=== PATIENT | male | born 1965 | race Caucasian/White ===

== ENCOUNTER 2018-03-21 15:31 | Emergency (ER) | payer OTHER, SELFPAY ==
[2018-03-21 15:32] VITALS: BP 152/93; PULSE 75; RESP 16; TEMP 36.8; O2SAT 98; BMI 29.0
[2018-03-21 15:51] VITALS: BP 152/93; PULSE 65; RESP 18; TEMP 36.8; O2SAT 98
--- NOTE | 2018-03-21 16:17 | ED.VIS.GEN ---
History of Present Illness Chief Complaint: Abd Pain Informant: Patient Onset: Days - 2 Context: Gradual Onset Timing: Continuous Quality: ache Location: RLQ Current Severity: Moderate Maximum Severity: Moderate Associated Symptoms: Diarrhea, small amounts of bright red blood per rectum Narrative: Seen by Dr. Moreno for this today as an outpatient, had blood work and a CT that showed a leukocytosis of 14.1 and sigmoid diverticulitis with possible surgical complications; as noted on the report, there is surrounding phlegmon without a drainable fluid collection, in addition to a 1.2 X 0.9 cm focus of fluid and gas probably within the colonic wall that represents an intramural abscess versus inflamed diverticulum that is not amenable to percutaneous drainage. PCP called and sent the patient in for further evaluation. CT was performed in the local [facility] outpatient imaging facility. - Past Medical History (1) Hyperlipidemia Status: Chronic (2) HTN (hypertension) Status: Chronic (3) Diverticulosis Status: Chronic Past Medical History - Allergies and Home Meds Allergies/Adverse Reactions: Allergies No Known Allergies Allergy (Verified 03/21/18 15:31) Primary Care Physician: Eugene Go MD [STAFF PHYSICIAN] - Smoking Status: Never smoker Review of Systems General: Denies: Chills, Fever, Sweats Eyes: Denies: Visual changes - bilaterally, Diplopia ENT: Denies: Rhinorrhea, Sore throat Cardiovascular: Denies: Chest pain, Palpitations Respiratory: Denies: Dyspnea, Cough, Dyspnea on exertion Gastrointestinal: Reports: Abdominal pain, Diarrhea, Hematochezia. Denies: Nausea, Vomiting, Melena Genitourinary: Denies: Dysuria, Hematuria, Frequency Musculoskeletal: Denies: Swelling, Extremity Pain Skin: Denies: Rash, Abscess Neurological: Denies: Headache, Weakness, Numbness Allergy: Denies: Swelling of the mouth, Swelling of the tongue Physical Exam Vital Signs/Narrative: Vital Signs Temp Pulse Resp BP Pulse Ox 03/21/18 15:51 98.2 F 65 18 152/93 H 98 03/21/18 15:32 98.2 F 75 16 152/93 H 98 Inital Vital Signs reviewed: Yes General: Well nourished, Well developed, - - well-appearing, nad Head: Normocephalic, Atraumatic Eyes: Perrl, EOMI ENT: Moist mucous membranes, No rhinorrhea Neck: Supple, Nontender Cardiovascular: Regular rate, Regular rhythm, No murmurs, Normal S1, Normal S2 Respiratory: No distress, CTA bilaterally, Chest nontender Abdomen: Soft, Nondistended, Normal bowel sounds, Tender - RLQ > LLQ and LUQ. Negative for: Guarding, Rebound tenderness Back: Nontender, Normal Inspection. Negative for: CVA tenderness Extremities: Nontender, No edema Skin: Normal color, No rash Neurological: Alert, Oriented x3, Cranial nerves II-XII grossly intact, Normal Strength, Normal Sensation Psychological: Normal affect Diagnostic/Tx/Re-eval - Medical Decision Making Discussed CT results with patient and the recommendation for a surgical referral. Patient prefers to stay within the [facility]. Dr. Jasso is on-call for [facility], discussed with him. He looked at the scans and we discussed further. The patient is very stable and has a fairly benign exam, nonsurgical abdomen. He states based on all of this, he recommends outpatient treatment and outpatient follow-up, returning to ER if symptoms worsen, in addition to keeping the patient on a clear liquid and low residue diet for the next 3 days or so. He will be treated with Cipro and Flagyl as an outpatient, he was given IV doses of both here, as well as a dose of morphine. He is well and stable on reevaluation. Prescribed analgesics and given surgical follow-up if he is not improved. He is comfortable with that plan. ED Disposition - Plan for ED Patient: Disposition: Home or Assisted Living Chief Complaint: Abd Pain Diagnosis: Acute diverticulitis Instructions: ED Diverticulitis Prescriptions: Oxycodone HCl/Acetaminophen [Percocet 5/325] 1 tab PO Q6H PRN PRN 3 Days #12 tab PRN Reason: Pain Ciprofloxacin [Cipro] 500 mg PO BID #20 tab Metronidazole [Flagyl] 500 mg PO BID #20 tab Referrals: Norm Jasso MD [STAFF PHYSICIAN] - 3-5 Days if not improving Eugene Go MD [STAFF PHYSICIAN] -
[2018-03-21] MEDS: Morphine 4 MG/ML Syringe IV (16:33)
[2018-03-21] MEDS: Ciprofloxacin 400 MG/200 ML BAG 200 MG IV (16:33)
[2018-03-21 16:37] VITALS: BP 142/87; PULSE 72; RESP 18; TEMP 37.6; O2SAT 97
[2018-03-21 17:16] VITALS: BP 131/81; PULSE 68; RESP 18; TEMP 37.5; O2SAT 95
[2018-03-21 19:12] VITALS: BP 137/78; PULSE 73; RESP 16; O2SAT 98
--- OUTSIDE RECORDS SUMMARY | 2018-05-26 16:33 | XMS RPT_ITS ---
:1965 Author Organization OHIP Care Team Providers Name Role Phone AMA MORENO Attending Unavailable AMA MORENO Referring Unavailable AMA MORENO Attending Unavailable AMA MORENO Referring Unavailable Suzanne WADDELL (PA-C) Referring Unavailable AMA MORENO Attending Unavailable AMA MORENO Referring Unavailable AMA MORENO Referring Unavailable AMA MORENO Referring Unavailable AMA MORENO Referring Unavailable JUAN SUAZO Attending Unavailable Ama Moreno Primary Care Unavailable PROBLEMS PROBLEMS DATE TYPE CONDITION / CODE ATTENDING STATUS SOURCE 03/21/2018 Unknown K57.92 - JUAN SUAZO Active [facility] Diverticulitis of Community intestine, part Hospital unspecified, without Repository perforation or abscess without bleeding / K57.92(ICD-10) 03/21/2018 Active Hemorrhage of anus NA Active [facility] and rectum / Clinic Main K62.5(ICD-10) [place] Repository 03/21/2018 Active Right lower quadrant NA Active [facility] pain / [facility] R10.31(ICD-10) [place] Repository 01/13/2018 Active Abnormal levels of NA Active [facility] other serum enzymes Clinic Main / R74.8(ICD-10) [place] Repository 12/01/2016 Active Family history of NA Active [facility] malignant neoplasm [facility] of prostate / [place] Z80.42(ICD-10) Repository 03/18/2015 Active Mixed hyperlipidemia NA Active [facility] / E78.2(ICD-10) Clinic Main [place] Repository 04/09/2010 Active Other abnormal NA Active [facility] glucose / [facility] R73.09(ICD-10) [place] Repository 12/04/2017 Active Left lower quadrant NA Active [facility] pain / [facility] Main R10.32(ICD-10) [place] Repository PROCEDURES PROCEDURES No Procedure Records FoundRESULTS RESULTS EMERGENCY DEPARTMENT Observed: 03/21/2018 Status: F Source: [place] SUMMARY 6:07 PM [facility] REPOSITORY [facility] Medical Records Department [address] [place] [address] Emergency Department Summary 03/21/18 1617 MR#: [id number] Acct: [id number] Name: SANDEEP BARNES Rep #: [id number] : 1965 52 From: Juan Suazo MD PCP: Ama Moreno MD Status: REG ER History of Present Illness Chief Complaint: Abd Pain Informant: Patient Onset: Days - 2 Context: Gradual Onset Timing: Continuous Quality: ache Location: RLQ Current Severity: Moderate Maximum Severity: Moderate Associated Symptoms: Diarrhea, small amounts of bright red blood per rectum Narrative: Seen by Dr. Moreno for this today as an outpatient, had blood work and a CT that showed a leukocytosis of 14.1 and sigmoid diverticulitis with possible surgical complications; as noted on the report, there is surrounding phlegmon without a drainable fluid collection, in addition to a 1.2 X 0.9 cm focus of fluid and gas probably within the colonic wall that represents an intramural abscess versus inflamed diverticulum that is not amenable to percutaneous drainage. PCP called and sent the patient in for further evaluation. CT was performed in the local [facility] outpatient imaging facility. - Past Medical History (1) Hyperlipidemia Status: Chronic (2) HTN (hypertension) Status: Chronic (3) Diverticulosis Status: Chronic Past Medical History - Allergies and Home Meds Allergies/Adverse Reactions: Allergies No Known Allergies Allergy (Verified 03/21/18 15:31) Primary Care Physician: Eugene Go MD [STAFF PHYSICIAN] - Smoking Status: Never smoker Review of Systems General: Denies: Chills, Fever, Sweats Eyes: Denies: Visual changes - bilaterally, Diplopia ENT: Denies: Rhinorrhea, Sore throat Cardiovascular: Denies: Chest pain, Palpitations Respiratory: Denies: Dyspnea, Cough, Dyspnea on exertion Gastrointestinal: Reports: Abdominal pain, Diarrhea, Hematochezia. Denies: Nausea, Vomiting, Melena Genitourinary: Denies: Dysuria, Hematuria, Frequency Musculoskeletal: Denies: Swelling, Extremity Pain Skin: Denies: Rash, Abscess Neurological: Denies: Headache, Weakness, Numbness Allergy: Denies: Swelling of the mouth, Swelling of the tongue Physical Exam Vital Signs/Narrative: Vital Signs 03/21/18 15:51 98.2 F 65 18 152/93 H 98 03/21/18 15:32 98.2 F 75 16 152/93 H 98 Inital Vital Signs reviewed: Yes General: Well nourished, Well developed, - - well-appearing, nad Head: Normocephalic, Atraumatic Eyes: Perrl, EOMI ENT: Moist mucous membranes, No rhinorrhea Neck: Supple, Nontender Cardiovascular: Regular rate, Regular rhythm, No murmurs, Normal S1, Normal S2 Respiratory: No distress, CTA bilaterally, Chest nontender Abdomen: Soft, Nondistended, Normal bowel sounds, Tender - RLQ > LLQ and LUQ. Negative for: Guarding, Rebound tenderness Back: Nontender, Normal Inspection. Negative for: CVA tenderness Extremities: Nontender, No edema Skin: Normal color, No rash Neurological: Alert, Oriented x3, Cranial nerves II-XII grossly intact, Normal Strength, Normal Sensation Psychological: Normal affect Diagnostic/Tx/Re-eval - Medical Decision Making Discussed CT results with patient and the recommendation for a surgical referral. Patient prefers to stay within the [facility]. Dr. Jasso is on-call for [facility], discussed with him. He looked at the scans and we discussed further. The patient is very stable and has a fairly benign exam, nonsurgical abdomen. He states based on all of this, he recommends outpatient treatment and outpatient follow-up, returning to ER if symptoms worsen, in addition to keeping the patient on a clear liquid and low residue diet for the next 3 days or so. He will be treated with Cipro and Flagyl as an outpatient, he was given IV doses of both here, as well as a dose of morphine. He is well and stable on reevaluation. Prescribed analgesics and given surgical follow-up if he is not improved. He is comfortable with that plan. ED Disposition - Plan for ED Patient: Disposition: Home or Assisted Living Chief Complaint: Abd Pain Diagnosis: Acute diverticulitis Instructions: ED Diverticulitis Prescriptions: Oxycodone HCl/Acetaminophen [Percocet 5/325] 1 tab PO Q6H PRN PRN 3 Days #12 tab PRN Reason: Pain Ciprofloxacin [Cipro] 500 mg PO BID #20 tab Metronidazole [Flagyl] 500 mg PO BID #20 tab Referrals: Norm Jasso MD [STAFF PHYSICIAN] - 3-5 Days if not improving Eugene Go MD [STAFF PHYSICIAN] - What to do if you have Problems For any increased pain, shortness of breath, bleeding, nausea or vomiting, chest pain, or any unexpected problems, contact your Primary Care Provider. Call [facility] ([phone]) or report to the closest Emergency Room. Call 911 if necessary. 03/21/[id number] <Electronically signed by Juan Suazo MD> Date Juan Suazo MD Cosigner Signature (If Indicated): Date CC: Eugene Go MD; Norm Jasso MD; Ama Moreno MD PROGRESS Observed: 03/21/2018 Status: COMPLETED Source: [place] 3:15 PM [facility] REPOSITORY HNO ID: [id number] Author: Ama Moreno Service: (none) Author Type: Physician Type: Progress Notes Filed: 03/21/2018 3:16 PM Note Text: White count is up. His ct scan shows diverticulitis with ? Phlegmon. ? Submucosal abscess. Will call [facility] ER with report. PROGRESS Observed: 03/21/2018 Status: COMPLETED Source: [place] 2:42 PM [facility] REPOSITORY HNO ID: [id number] Author: Sugey Harvey Service: (none) Author Type: (none) Type: Progress Notes Filed: 03/21/2018 2:43 PM Note Text: Radiology Service Progress Note PATIENT NAME: Sandeep Barnes DATE OF SERVICE: March 21, 2018 TIME: 2:42 PM PATIENT IDENTITY VERIFICATION COMPLETED USING TWO (2) METHODS: Patient confirmed name verbally and Date of . PATIENT GENDER DATA: Male PATIENT RELEVANT IMPLANT DATA REVIEWED: Yes CONTRAST INDUCED NEPHROPATHY RISK FACTORS: Not applicable CREATININE: Creatinine Date Value Ref Range Status 03/21/2018 0.99 0.73 - 1.22 mg/dL Final 12/04/2017 0.87 0.73 - 1.22 mg/dL Final 11/22/2016 1.03 0.73 - 1.22 mg/dL Final eGFR-All Other Races Date Value Ref Range Status 03/21/2018 >60 . Final Comment: eGFR (Estimated GFR) Units of measure: mL/min/1.73 meters squared eGFR is derived from the reexpressed MDRD Study equation using the following parameters: serum creatinine, age, gender and race. The creatinine assay has been calibrated to be traceable to IDMS. An eGFR <60 mL/min/1.73m2 for >3 months is consistent with chronic kidney disease. Refer to KDOQI guidelines for clinical interpretation. In patients with unstable renal function, e.g. those with acute kidney injury, the eGFR may not accurately reflect actual GFR. eGFR- Date Value Ref Range Status 03/21/2018 >60 Final P.O.C.T. RESULTS: POC done: Yes, See Lab Tab March 21, 2018 RADIOLOGIST NOTIFIED?: No ALLERGIES: Reviewed and unchanged CONTRAST ALLERGY: NO. PERIPHERAL IV ACCESS: Ambulatory: IV type: A peripheral IV was started in the Left antecubital site with a Angio cath/Butterfly: 22 gauge., Site assessment: Clean,Dry and Intact, Site disposition Discontinued RADIOLOGY DEPARTMENT: CT; Exam(s) Completed: Abdomen/Pelvis SIGNED BY: Sugey Harvey March 21, 2018 2:[address] ABD/PEL W IVCON Observed: 03/21/2018 Status: F Source: [place] 2:42 PM [facility] REPOSITORY * * *Final Report* * * DATE OF EXAM: Mar 21 2018 2:42PM [facility] 0530 - CT ABD/PEL W IVCON / PROCEDURE REASON: multiple diagnoses * * * * Physician Interpretation * * * * EXAMINATION: CT ABDOMEN AND PELVIS WITH IV CONTRAST CLINICAL HISTORY: Right lower quadrant abdominal pain TECHNIQUE: CT of the abdomen and pelvis was performed using standard technique, scanning from just above the dome of the diaphragm to the symphysis pubis. MQ: CTAP_3 Contrast: IV: 150 ml of Omnipaque 300 Oral: 900 ml of 50ML Omnipaque [address] Radiation dose: Integrated Dose-length product (DLP) for this visit = 579 mGy*cm. CT Dose Reduction Employed: mAs-kVp adjusted based on patient size-age COMPARISON: None. RESULT: Liver: No mass. Biliary: No bile duct dilation. Gallbladder is unremarkable. Spleen: No mass. No splenomegaly. Pancreas: No mass or duct dilation. Adrenals: No mass. Kidneys: No mass, calculus or hydronephrosis. GI tract: Diverticulosis. Within the distal sigmoid colon, there is marked wall thickening is surrounding pericolonic inflammatory change. There is no pneumoperitoneum. There is a 1.2 x 0.9 cm fluid and gas focus which may be within the colonic wall or may reflect a diverticulum (series 3 image 111). The appendix is normal. No bowel wall thickening or dilation. Lymph nodes: No abdominal or pelvic lymphadenopathy. Mesentery/Peritoneum: No ascites or mass. Retroperitoneum: No mass. Vasculature: The celiac axis and SMA are patent. The portal vein and branches, splenic vein, SMV, and hepatic veins are patent. No abdominal aortic or iliac artery aneurysm. Pelvis: No mass, ascites or fluid collection. The bladder is unremarkable. Bones/Soft Tissues: No significant finding. Lower thorax: Unremarkable. IMPRESSION: Acute sigmoid diverticulitis with surrounding phlegmon. No drainable fluid collection at this time. 1.2 x 0.9 cm focus of fluid and gas, probably within the colonic wall likely reflects an intramural abscess versus inflamed diverticulum, not amenable to percutaneous drainage. Biomass Technician: [facility] Transcribe Date/Time: Mar 21 2018 2:44P Dictated by : TAI GALVEZ MD This examination was interpreted and the report reviewed and electronically signed by: TAI GALVEZ MD on Mar 21 2018 2:50PM EST [id number] BASIC METABOLIC PANL Collected: 03/21/2018 Status: F Source: [place] 9:08 AM [facility] REPOSITORY TYPE CODE TESTS RESULT OUT OF REFERENCE UNITS RANGE LAB GLU 74-99 mg/dL Glucose High 129 LAB BUN 9-24 mg/dL BUN 13 LAB CRET 0.73-1.22 mg/dL Creatinine 0.99 LAB NA 136-144 mmol/L Low Sodium 135 LAB K 3.7-5.1 mmol/L Potassium 4.0 LAB CL 97-105 mmol/L Chloride 101 LAB CO2 22-30 mmol/L CO2 28 LAB AGAP 9-18 mmol/L Low Anion Gap 6 LAB CA 8.5-10.2 mg/dL Calcium, Total 9.7 LAB GFRAA eGFR- >60 Amer. LAB GFRNAA . eGFR-All Other Races >60 Result Comment: eGFR (Estimated GFR) Units of measure: mL/min/1.73 meters squared eGFR is derived from the reexpressed MDRD Study equation using the following parameters: serum creatinine, age, gender and race. The creatinine assay has been calibrated to be traceable to IDMS. An eGFR <60 mL/min/1.73m2 for >3 months is consistent with chronic kidney disease. Refer to KDOQI guidelines for clinical interpretation. In patients with unstable renal function, e.g. those with acute kidney injury, the eGFR may not accurately reflect actual GFR. [place] CBC Collected: 03/21/2018 Status: F Source: [place] 9:08 AM [facility] REPOSITORY TYPE CODE TESTS RESULT OUT OF REFERENCE UNITS RANGE LAB WWBC 3.70-11.00 k/uL [facility] High WBC 14.15 LAB WRBC 4.20-6.00 m/uL [place] RBC 5.13 LAB WHGB 13.0-17.0 g/dL [facility] Hemoglobin 15.9 LAB WHCT 39.0-51.0 % [place] Hematocrit 46.1 LAB WMCV 80.0-100.0 fL [place] MCV 89.9 LAB WMCH 26.0-34.0 pg [place] MCH 31.0 LAB WMCHC 30.5-36.0 g/dL [place] MCHC 34.5 LAB WRDW 11.5-15.0 % [place] RDW 13.2 LAB WPLT 150-400 k/uL [place] Platelet Cnt 199 LAB WMPV 9.0-12.7 fL [place] MPV 10.6 Result Comment: Test performed at: [facility] [place] [address] [place], [place] [address] [place] [address]. PROGRESS Observed: 03/21/2018 Status: COMPLETED Source: [place] 8:20 AM [facility] REPOSITORY O ID: [id number] Author: Ama Moreno Service: (none) Author Type: Physician Type: Progress Notes Filed: 03/21/2018 10:42 AM Note Text: Patient presents with: Abdominal Pain HPI: Patient presents today for office visit for follow up. Nursing Notes: Cori Mc Ma 03/21/2018 8:02 AM Unsigned ABDOMINAL PAIN: Pt c/o lower abdominal pain since yesterday morning. Mostly on right side. Some diarrhea, denies vomiting or fever. PAIN SCALE: 6 on a scale of 0-10 PAIN CHARACTER: dull and cramping FREQUENCY: (How often does the pain occur?) occurs constantly AGGRAVATING FACTORS: activity ALLEVIATING FACTORS: lying supine Had similar mild pain in oct that resolved after antibiotics. No imaging etc required. No diarrhea or constipation. Did have a small amount of blood when he wiped. No black stools. No blood in the bowel. No rectal pain. No issues urinating. Decreased appetite No nausea or vomiting. Pain is rlq now. No fever or chills. Pain started yesterday. MEDICATIONS: Current Outpatient Prescriptions: citalopram (CELEXA) 20 mg tablet TAKE 1 TABLET ONCE DAILY zolpidem (AMBIEN) 10 mg tab Take one(1) tablet at bedtime as needed for insomnia. Tadalafil (CIALIS) 10 mg tablet Take 1 tablet by mouth as needed. hydroCHLOROthiazide (HYDRODIURIL, ESIDRIX) 25 mg tablet TAKE 1 TABLET DAILY metoprolol succinate ER (TOPROL XL) 25 mg 24 hr tablet TAKE 1 TABLET DAILY FOR BLOOD PRESSURE simvastatin (ZOCOR) 20 mg tablet TAKE 1 TABLET AT BEDTIME No current facility-administered medications for this visit. ALLERGIES: ALLERGIES No Known Allergies PAST MEDICAL HISTORY Diagnosis Date - Diverticulitis of colon (without mention of hemorrhage)(562.11) - Essential hypertension, benign - Insomnia - Other and unspecified hyperlipidemia PAST SURGICAL HISTORY Procedure Laterality Date - COLONOSCOP W/ OR W/O [facility] SPEC 03/19/2010 Diverticulosis - PAST SURGICAL HISTORY OF right 3rd mc fx - REMOVAL OF TONSILS,<12 Y/O Tonsillectomy/ adenoids - SIGMOIDOSCOPY FLEX DIAG 02/21/07 - VASECTOMY FAMILY HISTORY Problem Relation Age of Onset - Lipids Mother - Lipids Father - Prostate Cancer Father Social History Marital status: Spouse name: Edilia Years of education: Number of children: 2 Occupational History Occupation Employer Comment [employer] Social History Main Topics Smoking status: Former Smoker Packs/day: 1.00 Years: 5.00 Types: Cigarettes Quit date: 03/06/1989 Smokeless tobacco: Former User Comment: quit aproximatemately 10 years ago Alcohol use: Yes Comment: occasionally- 4-5 week Drug use: No Reviewed current medications, allergies, past medical history, surgical history, family history and social history today. REVIEW OF SYSTEMS no chest pain or shortness of breath or dizziness. All other reviewed and negative other than HPI. HEALTH MAINTENANCE: Reviewed health maintenance issues today and recommended the following in detail. There are no preventive care reminders to display for this patient. VITALS: BP 126/72 Pulse 76 Temp 36.7 ?C (98 ?F) (Tympanic) Resp 20 Wt 84.4 kg (186 lb) BMI 30.02 kg/m? Last 4 Encounter Wt Readings: Date: Wt: 03/21/2018 84.4 kg (186 lb) 12/06/2017 82.6 kg (182 lb) 12/04/2017 83.9 kg (185 lb) 02/10/2017 81.7 kg (180 lb 3.2 oz) PHYSICAL EXAMINATION: General appearance: Well appearing, alert, in no acute distress, well-hydrated, well nourished. Skin: Skin color, texture, turgor normal, no suspicious rashes or lesions Head: Normocephalic, no masses, lesions, tenderness or abnormalities Lungs: lungs clear to auscultation. No wheezing, rhonchi, rales Heart: RRR without murmur, gallop, or rubs. No ectopy Abdomen: Normal abdominal exam, Abdomen shows rlq tenderness. No definite rebound. Bowel sounds normal. No masses, organomegaly Extremities: No deformities, edema, skin discoloration, clubbing or cyanosis. Good capillary refill. Musculoskeletal: No joint swelling, deformity, or tenderness Rectal. Stool brown. Trace heme positive. No masses or fissures. Normal prostate ASSESSMENT/PLAN: 1. Right lower quadrant abdominal pain - ICD9: 789.03, ICD10: R10.31 (primary diagnosis) - could still be diverticulitis but need to rule out developing appy. Do labs and ct stat. Treat depending on results. If diverticulitis, will need colonoscopy after. Red flags for re-assessment reviewed with patient in detail. - follow up depends on studies. - CT ABD/PEL W IVCON - IV CONTRAST (RADIOLOGY PROCEDURE) - ENTERIC CONTRAST (RADIOLOGY PROCEDURE) - CBC + DIFF - BASIC METABOLIC PNL - UA DIP B/O 2. Essential hypertension, benign - ICD9: 401.1, ICD10: I10 - good control - Continue current medication(s) - Recommended regular aerobic exercise. - Recommend home blood pressure monitoring, to bring results in on next visit - Goal of BP <130/80 3. Mixed hyperlipidemia - ICD9: 272.2, ICD10: E78.2 - good control - Continue current medication. 4. Rectal bleeding - ICD9: 569.3, ICD10: K62.5 - check cbc and ct Ama Moreno MD RTO this week after studies and prn. CNOV Observed: 03/21/2018 Status: COMPLETED Source: [place] 8:00 AM [facility] REPOSITORY [facility] SANDEEP BARNES ([id number]) 1965 M Date Time Provider Department 03/21/18 8:00 AM [facility] today, we recorded the following information about you: Temperature Pulse Respiration Blood pressure 98 degrees 76/minute 20/minute 126/72 Weight 84.4 kg Cori Mc Enrike 03/21/2018 8:22 AM Signed ABDOMINAL PAIN: Pt c/o lower abdominal pain since yesterday morning. Mostly on right side. Some diarrhea, denies vomiting or fever. PAIN SCALE: 6 on a scale of 0-10 PAIN CHARACTER: dull and cramping FREQUENCY: (How often does the pain occur?) occurs constantly AGGRAVATING FACTORS: activity ALLEVIATING FACTORS: lying supine Ama Moreno MD 03/21/2018 10:42 AM Signed Patient presents with: Abdominal Pain HPI: Patient presents today for office visit for follow up. Nursing Notes: Cori Mc Ma 03/21/2018 8:02 AM Unsigned ABDOMINAL PAIN: Pt c/o lower abdominal pain since yesterday morning. Mostly on right side. Some diarrhea, denies vomiting or fever. PAIN SCALE: 6 on a scale of 0-10 PAIN CHARACTER: dull and cramping FREQUENCY: (How often does the pain occur?) occurs constantly AGGRAVATING FACTORS: activity ALLEVIATING FACTORS: lying supine Had similar mild pain in oct that resolved after antibiotics. No imaging etc required. No diarrhea or constipation. Did have a small amount of blood when he wiped. No black stools. No blood in the bowel. No rectal pain. No issues urinating. Decreased appetite No nausea or vomiting. Pain is rlq now. No fever or chills. Pain started yesterday. MEDICATIONS: Current Outpatient Prescriptions: citalopram (CELEXA) 20 mg tablet TAKE 1 TABLET ONCE DAILY zolpidem (AMBIEN) 10 mg tab Take one(1) tablet at bedtime as needed for insomnia. Tadalafil (CIALIS) 10 mg tablet Take 1 tablet by mouth as needed. hydroCHLOROthiazide (HYDRODIURIL, ESIDRIX) 25 mg tablet TAKE 1 TABLET DAILY metoprolol succinate ER (TOPROL XL) 25 mg 24 hr tablet TAKE 1 TABLET DAILY FOR BLOOD PRESSURE simvastatin (ZOCOR) 20 mg tablet TAKE 1 TABLET AT BEDTIME No current facility-administered medications for this visit. ALLERGIES: ALLERGIES No Known Allergies PAST MEDICAL HISTORY Diagnosis Date - Diverticulitis of colon (without mention of hemorrhage)(562.11) - Essential hypertension, benign - Insomnia - Other and unspecified hyperlipidemia PAST SURGICAL HISTORY Procedure Laterality Date - COLONOSCOP W/ OR W/O [facility] SPEC 03/19/2010 Diverticulosis - PAST SURGICAL HISTORY OF right 3rd mc fx - REMOVAL OF TONSILS,<12 Y/O Tonsillectomy/ adenoids - SIGMOIDOSCOPY FLEX DIAG 02/21/07 - VASECTOMY FAMILY HISTORY Problem Relation Age of Onset - Lipids Mother - Lipids Father - Prostate Cancer Father Social History Marital status: Spouse name: Edilia Years of education: Number of children: 2 Occupational History Occupation Employer Comment [employer] Social History Main Topics Smoking status: Former Smoker Packs/day: 1.00 Years: 5.00 Types: Cigarettes Quit date: 03/06/1989 Smokeless tobacco: Former User Comment: quit aproximatemately 10 years ago Alcohol use: Yes Comment: occasionally- 4-5 week Drug use: No Reviewed current medications, allergies, past medical history, surgical history, family history and social history today. REVIEW OF SYSTEMS no chest pain or shortness of breath or dizziness. All other reviewed and negative other than HPI. HEALTH MAINTENANCE: Reviewed health maintenance issues today and recommended the following in detail. There are no preventive care reminders to display for this patient. VITALS: BP 126/72 Pulse 76 Temp 36.7 ?C (98 ?F) (Tympanic) Resp 20 Wt 84.4 kg (186 lb) BMI 30.02 kg/m? Last 4 Encounter Wt Readings: Date: Wt: 03/21/2018 84.4 kg (186 lb) 12/06/2017 82.6 kg (182 lb) 12/04/2017 83.9 kg (185 lb) 02/10/2017 81.7 kg (180 lb 3.2 oz) PHYSICAL EXAMINATION: General appearance: Well appearing, alert, in no acute distress, well-hydrated, well nourished. Skin: Skin color, texture, turgor normal, no suspicious rashes or lesions Head: Normocephalic, no masses, lesions, tenderness or abnormalities Lungs: lungs clear to auscultation. No wheezing, rhonchi, rales Heart: RRR without murmur, gallop, or rubs. No ectopy Abdomen: Normal abdominal exam, Abdomen shows rlq tenderness. No definite rebound. Bowel sounds normal. No masses, organomegaly Extremities: No deformities, edema, skin discoloration, clubbing or cyanosis. Good capillary refill. Musculoskeletal: No joint swelling, deformity, or tenderness Rectal. Stool brown. Trace heme positive. No masses or fissures. Normal prostate ASSESSMENT/PLAN: 1. Right lower quadrant abdominal pain - ICD9: 789.03, ICD10: R10.31 (primary diagnosis) - could still be diverticulitis but need to rule out developing appy. Do labs and ct stat. Treat depending on results. If diverticulitis, will need colonoscopy after. Red flags for re-assessment reviewed with patient in detail. - follow up depends on studies. - CT ABD/PEL W IVCON - IV CONTRAST (RADIOLOGY PROCEDURE) - ENTERIC CONTRAST (RADIOLOGY PROCEDURE) - CBC + DIFF - BASIC METABOLIC PNL - UA DIP B/O 2. Essential hypertension, benign - ICD9: 401.1, ICD10: I10 - good control - Continue current medication(s) - Recommended regular aerobic exercise. - Recommend home blood pressure monitoring, to bring results in on next visit - Goal of BP <130/80 3. Mixed hyperlipidemia - ICD9: 272.2, ICD10: E78.2 - good control - Continue current medication. 4. Rectal bleeding - ICD9: 569.3, ICD10: K62.5 - check cbc and ct Ama Moreno MD RTO this week after studies and prn. Ama Moreno MD 03/21/2018 3:16 PM Signed White count is up. His ct scan shows diverticulitis with ? Phlegmon. ? Submucosal abscess. Will call [facility] ER with report. Referring Provider: SELF [[id number]] Allergies As of Date: 03/21/2018 (No Known Allergies) Date Reviewed: 03/21/2018 Reviewed by: Cori Mc Ma - Fully Assessed Reason for Visit: Abdominal Pain [1] Primary Visit Diagnosis:Right lower quadrant abdominal pain [R10.31] Other Visit Diagnoses:Essential hypertension, benign [I10] Mixed hyperlipidemia [E78.2] Rectal bleeding [K62.5] Order(s):CT ABD/PEL W IVCON [[id number]] Order #: [id number] FUTURE iv contrast (will be provided with radiology test)CT ABD/PEL -Inject, intravenously, once for 1 dose.No IV access, insert saline lock prior to the beginning of sedation, infusion, injection of imaging exam. Discontinue saline lock post exam. If Pt. has a central line or IVAD, may access for administration according to line specific nursing protocol. Once exam is complete flush line and de- access according to line specific nursing protocol in the CT contrast administration guidelines link.Disp: 1 EachRfl: 0 enteric contrast (will be provided with radiology test)For CT ABD/PEL W IVCON Routine order Administer, As Directed One Time Only, via Oral, Rectal, both Oral and Rectal, Enteric Tube, Stoma or Indwelling Catheter, Enteric Contrast as designated per enteric contrast guidelinesDisp: 1 EachRfl: 0 BASIC METABOLIC PNL [SQBMP] Order #: [id number] FUTURE UA DIP B/O [[id number]] Order #: [id number] HEMOCUE B/O [[id number]] Order #: [id number] FRANCISCO CBC [SQWCBC] Order #: [id number] FUTURE Prescriptions as of 03/21/2018 Sig: CITALOPRAM 20 MG TABLET TAKE 1 TABLET ONCE DAILY ZOLPIDEM 10 MG TABLET Take one(1) tablet at bedtime* TADALAFIL 10 MG TABLET Take 1 tablet by mouth as nee* HYDROCHLOROTHIAZIDE 25 MG TAB* TAKE 1 TABLET DAILY METOPROLOL SUCCINATE ER 25 MG* TAKE 1 TABLET DAILY FOR BL* SIMVASTATIN 20 MG TABLET TAKE 1 TABLET AT BEDTIME IV CONTRAST (RADIOLOGY PROCED* CT ABD/PEL -Inject, intraveno* ENTERIC CONTRAST (RADIOLOGY P* For CT ABD/PEL W IVCON Routin* Problem List As Of Date 03/21/2018 Noted Resolved BENIGN HYPERTENSION [I10] INVALID FOR* More... Mixed hyperlipidemia [E78.2] INVALID FOR* More... Hemorrhage of rectum and anus [K62.5] 04/09/2010 Contusion of unspecified part of lower limb [S8*INVALID FOR*04/09/2010 CHRONIC RHINITIS [J31.0] INVALID FOR* More... Overweight [E66.3] INVALID FOR*04/09/2010 More... INSOMNIA NOS [G47.00] INVALID FOR* Swelling, mass, or lump in chest [R22.2] INVALID FOR*04/09/2010 Diverticulitis [K57.92] INVALID FOR*04/09/2010 Elevated glucose [R73.09] INVALID FOR* Diverticulosis [K57.90] INVALID FOR* Itchy anus [L29.0] INVALID FOR*01/12/2012 Fissure in ano [K60.2] INVALID FOR*01/12/2012 Anxiety [F41.9] INVALID FOR* Family history of prostate cancer in father [Z8*INVALID FOR* Visit Notes: >> Cori Mc Ma MonMar 21, 2018 8:00 AM Status: Signed ABDOMINAL PAIN: Pt c/o lower abdominal pain since yesterday morning. Mostly on right side. Some diarrhea, denies vomiting or fever. PAIN SCALE: 6 on a scale of 0-10 PAIN CHARACTER: dull and cramping FREQUENCY: (How often does the pain occur?) occurs constantly AGGRAVATING FACTORS: activity ALLEVIATING FACTORS: lying supine Prescriptions ordered this encounter Disp Refills Start End IV CONTRAST (RADIOLOGY PROCEDURE) 1 Ea* 0 03/21/2018 03/22/2018 Class: In Office Sig: CT ABD/PEL -Inject, intravenously, once for 1 dose.No IV access, insert saline lock prior to the beginning of sedation, infusion, injection of imaging exam. Discontinue saline lock post exam. If Pt. has a central line or IVAD, may access for administration according to line specific nursing protocol. Once exam is complete flush line and de-access according to line specific nursing protocol in the CT contrast administration guidelines link. ENTERIC CONTRAST (RADIOLOGY PROCEDUR* 1 Ea* 0 03/21/2018 03/22/2018 Class: In Office Sig: For CT ABD/PEL W IVCON Routine order Administer, As Directed One Time Only, via Oral, Rectal, both Oral and Rectal, Enteric Tube, Stoma or Indwelling Catheter, Enteric Contrast as designated per enteric contrast guidelines Follow-up and Disposition History Recorded Encounter Status:Closed by AMA MORENO MD on 03/21/18 HEPATIC FUNCTN PANEL Collected: 01/13/2018 Status: F Source: [place] 9:01 AM [facility] REPOSITORY TYPE CODE TESTS RESULT OUT OF REFERENCE UNITS RANGE LAB ALB 3.9-4.9 g/dL Albumin 4.4 LAB TBIL 0.2-1.3 mg/dL Bilirubin, Total 0.6 LAB CBIL <0.2 mg/dL Bilirubin,Conjuga <0.2 bijan LAB ALKP 38-113 U/L Alkaline Phosphatase 47 LAB AST 14-40 U/L AST 26 LAB ALT 10-54 U/L ALT 32 LAB TP 6.3-8.0 g/dL Protein, Total 6.9 Performed By: #### HFP #### [facility] [address], [place] [address] CNOV Observed: 12/06/2017 Status: COMPLETED Source: [place] 8:20 AM [facility] REPOSITORY Office Visit (FAMPWS) PARRISSANDEEP ([id number]) 1965 M Date Time Provider Department 12/06/17 8:20 AM AMA MORENO During your visit today, we recorded the following information about you: Pulse Respiration Blood pressure Weight 60/minute 16/minute 120/72 82.6 kg Ama Moreno MD 12/06/2017 9:24 AM Signed Patient presents with: Abdominal Pain HPI: Patient presents today for office visit for follow up. Feeling much better. Denies nausea, vomiting, diarrhea, fever, chills, headaches, chest pain, short of breath, leg swelling. Abdominal pain much improved. Tolerating flagyl and bactrim well. Component Latest Ref Rng AND Units 12/04/2017 WBC 3.70 - 11.00 k/uL 5.57 RBC 4.20 - 6.00 m/uL 4.89 Hemoglobin 13.0 - 17.0 g/dL 15.0 Hematocrit 39.0 - 51.0 % 46.8 MCV 80.0 - 100.0 fL 95.7 MCH 26.0 - 34.0 pG 30.7 MCHC 30.5 - 36.0 g/dL 32.1 RDW-CV 11.5 - 15.0 % 13.0 Platelet Count 150 - 400 k/uL 196 MPV 9.0 - 12.7 fL 10.5 Neut% % 72.4 Abs Neut (ANC) 1.45 - 7.50 k/uL 4.04 Lymph% % 16.0 Abs Lymph 1.00 - 4.00 k/uL 0.89 (L) Lincoln% % 9.0 Abs Lincoln <0.87 k/uL 0.50 Eosin% % 2.2 Abs Eosin <0.46 k/uL 0.12 Baso% % 0.4 Abs Baso <0.11 k/uL <0.03 Nucleated Reds 0 /100 WBC 0.0 Absolute nRBC <0.01 k/uL <0.01 Diff Type Auto Diff Protein, Total 6.3 - 8.0 g/dL 6.7 Albumin 3.9 - 4.9 g/dL 4.0 Calcium 8.5 - 10.2 mg/dL 9.2 Bilirubin, Total 0.2 - 1.3 mg/dL 0.6 Alkaline Phosphatase 38 - 113 U/L 62 AST 14 - 40 U/L 43 (H) Glucose 74 - 99 mg/dL 108 (H) BUN 9 - 24 mg/dL 11 Creatinine 0.73 - 1.22 mg/dL 0.87 Sodium 136 - 144 mmol/L 142 Potassium 3.7 - 5.1 mmol/L 4.5 Chloride 97 - 105 mmol/L 104 CO2 22 - 30 mmol/L 25 Anion Gap 9 - 18 mmol/L 13 ALT 10 - 54 U/L 60 (H) eGFR- >60 eGFR-All Other Races . >60 Total Cholesterol, Nonfasting <200 mg/dL 187 Triglycerides, Nonfasting <150 mg/dL 107 HDL Cholesterol, Nonfasting >39 mg/dL 49 LDL Cholesterol, Nonfasting <100 mg/dL 117 (H) Non HDL Cholesterol, Nonfasting <130 mg/dL 138 (H) VLDL Cholesterol, Nonfasting <30 mg/dL 21 Total Chol/HDL Ratio, Nonfasting <5.10 mg/dL 3.82 LDL/HDL Ratio, Nonfasting <2.54 mg/dL 2.39 Specimen Request Specimen received in preservative Culture No growth (<1,000 CFU/ml) Hemoglobin A1C 4.3 - 5.6 % 5.1 Estimated Average Glucose mg/dL 100 PSA 0.00 - 2.59 ng/mL 1.36 MEDICATIONS: Current Outpatient Prescriptions: metroNIDAZOLE (FLAGYL) 250 mg tablet Take 1 tablet by mouth three times daily for 10 days. sulfamethoxazole-trimethoprim (BACTRIM DS) 800-160 mg per tablet Take 1 tablet by mouth twice daily for 10 days. citalopram (CELEXA) 20 mg tablet Take 1 tablet by mouth once daily. Tadalafil (CIALIS) 10 mg tablet Take 1 tablet by mouth as needed. hydroCHLOROthiazide (HYDRODIURIL, ESIDRIX) 25 mg tablet TAKE 1 TABLET DAILY zolpidem (AMBIEN) 10 mg tab Take one(1) tablet at bedtime as needed for insomnia. metoprolol succinate ER (TOPROL XL) 25 mg 24 hr tablet TAKE 1 TABLET DAILY FOR BLOOD PRESSURE simvastatin (ZOCOR) 20 mg tablet TAKE 1 TABLET AT BEDTIME No current facility-administered medications for this visit. ALLERGIES: ALLERGIES No Known Allergies PAST MEDICAL HISTORY Diagnosis Date - Diverticulitis of colon (without mention of hemorrhage)(562.11) - Essential hypertension, benign - Insomnia - Other and unspecified hyperlipidemia PAST SURGICAL HISTORY Procedure Laterality Date - COLONOSCOP W/ OR W/O [facility] SPEC 03/19/2010 Diverticulosis - PAST SURGICAL HISTORY OF right 3rd mc fx - REMOVAL OF TONSILS,<11 Y/O Tonsillectomy/ adenoids - SIGMOIDOSCOPY FLEX DIAG 02/21/07 - VASECTOMY FAMILY HISTORY Problem Relation Age of Onset - Lipids Mother - Lipids Father - Prostate Cancer Father Social History Marital status: Spouse name: Edilia Years of education: Number of children: 2 Occupational History Occupation Employer Comment [employer] Social History Main Topics Smoking status: Former Smoker Packs/day: 1.00 Years: 5.00 Types: Cigarettes Quit date: 03/06/1989 Smokeless tobacco: Former User Comment: quit aproximatemately 10 years ago Alcohol use: Yes Comment: occasionally- 4-5 week Drug use: No Reviewed current medications, allergies, past medical history, surgical history, family history and social history today. REVIEW OF SYSTEMS All other reviewed and negative other than HPI. HEALTH MAINTENANCE: Reviewed health maintenance issues today and recommended the following in detail. BP CONTROLLED (<130/80) due on 1982 INFLUENZA-getting at work. Had colonoscopy at age 44 for identical symptoms. Discussed repeating at age 54. Had discussion with patient regarding risks and benefits of prostate screening. Allowed them to decide if they wished to proceed with screening including FIOR and PSA. VITALS: BP 120/72 Pulse 60 Resp 16 Wt 82.6 kg (182 lb) BMI 29.38 kg/m? Last 4 Encounter Wt Readings: Date: Wt: 12/06/2017 82.6 kg (182 lb) 12/04/2017 83.9 kg (185 lb) 02/10/2017 81.7 kg (180 lb 3.2 oz) 12/01/2016 81.2 kg (179 lb) PHYSICAL EXAMINATION: General appearance: Well appearing, alert, in no acute distress, well-hydrated, well nourished. Skin: Skin color, texture, turgor normal, no suspicious rashes or lesions Head: Normocephalic, no masses, lesions, tenderness or abnormalities Lungs: Lungs clear to auscultation. No wheezing, rhonchi, rales Heart: RRR without murmur, gallop, or rubs. No ectopy Abdomen: Normal abdominal exam, Abdomen soft, non-tender. Bowel sounds normal. No masses, organomegaly Extremities: No deformities, edema, skin discoloration, clubbing or cyanosis. Good capillary refill. ASSESSMENT/PLAN: 1. Diverticulitis - ICD9: 562.11, ICD10: K57.92 (primary diagnosis) - much improved. No changes in bowels. 2. Essential hypertension, benign - ICD9: 401.1, ICD10: I10 - good control - Continue current medication(s) - Goal of BP <140/90 3. Mixed hyperlipidemia - ICD9: 272.2, ICD10: E78.2 - to be determined upon return of lab results - Continue current medication. 4. Elevated liver enzymes - ICD9: 790.5, ICD10: R74.8 - recheck in four weeks. Ama Moreno MD RTO in six months and prn. Referring Provider: AMA MORENO [[id number]] Allergies As of Date: 12/06/2017 (No Known Allergies) Date Reviewed: 12/06/2017 Reviewed by: Shivani Barrett LPN - Fully Assessed Reason for Visit: Abdominal Pain [1] Primary Visit Diagnosis:Diverticulitis [K57.92] Other Visit Diagnoses:Essential hypertension, benign [I10] Mixed hyperlipidemia [E78.2] Elevated liver enzymes [R74.8] Prescriptions as of 12/06/2017 Sig: METRONIDAZOLE 250 MG TABLET Take 1 tablet by mouth three * SULFAMETHOXAZOLE 800 MG-TRIME* Take 1 tablet by mouth twice * CITALOPRAM 20 MG TABLET Take 1 tablet by mouth once d* TADALAFIL 10 MG TABLET Take 1 tablet by mouth as nee* HYDROCHLOROTHIAZIDE 25 MG TAB* TAKE 1 TABLET DAILY ZOLPIDEM 10 MG TABLET Take one(1) tablet at bedtime* METOPROLOL SUCCINATE ER 25 MG* TAKE 1 TABLET DAILY FOR BL* SIMVASTATIN 20 MG TABLET TAKE 1 TABLET AT BEDTIME Problem List As Of Date 12/06/2017 Noted Resolved BENIGN HYPERTENSION [I10] INVALID FOR* More... Mixed hyperlipidemia [E78.2] INVALID FOR* More... Hemorrhage of rectum and anus [K62.5] 04/09/2010 Contusion of unspecified part of lower limb [S8*INVALID FOR*04/09/2010 CHRONIC RHINITIS [J31.0] INVALID FOR* More... Overweight [E66.3] INVALID FOR*04/09/2010 More... INSOMNIA NOS [G47.00] INVALID FOR* Swelling, mass, or lump in chest [R22.2] INVALID FOR*04/09/2010 Diverticulitis [K57.92] INVALID FOR*04/09/2010 Elevated glucose [R73.09] INVALID FOR* Diverticulosis [K57.90] INVALID FOR* Itchy anus [L29.0] INVALID FOR*01/12/2012 Fissure in ano [K60.2] INVALID FOR*01/12/2012 Anxiety [F41.9] INVALID FOR* Family history of prostate cancer in father [Z8*INVALID FOR* Disposition: Return in about 6 months (around 06/06/2018). Follow-up and Disposition History Recorded Encounter Status:Closed by AMA MORENO MD on 12/06/17 PROGRESS Observed: 12/06/2017 Status: COMPLETED Source: [place] 8:19 AM [facility] REPOSITORY HNO ID: [id number] Author: Ama Moreno Service: (none) Author Type: Physician Type: Progress Notes Filed: 12/06/2017 9:24 AM Note Text: Patient presents with: Abdominal Pain HPI: Patient presents today for office visit for follow up. Feeling much better. Denies nausea, vomiting, diarrhea, fever, chills, headaches, chest pain, short of breath, leg swelling. Abdominal pain much improved. Tolerating flagyl and bactrim well. Component Latest Ref Rng AND Units 12/04/2017 WBC 3.70 - 11.00 k/uL 5.57 RBC 4.20 - 6.00 m/uL 4.89 Hemoglobin 13.0 - 17.0 g/dL 15.0 Hematocrit 39.0 - 51.0 % 46.8 MCV 80.0 - 100.0 fL 95.7 MCH 26.0 - 34.0 pG 30.7 MCHC 30.5 - 36.0 g/dL 32.1 RDW-CV 11.5 - 15.0 % 13.0 Platelet Count 150 - 400 k/uL 196 MPV 9.0 - 12.7 fL 10.5 Neut% % 72.4 Abs Neut (ANC) 1.45 - 7.50 k/uL 4.04 Lymph% % 16.0 Abs Lymph 1.00 - 4.00 k/uL 0.89 (L) Lincoln% % 9.0 Abs Lincoln <0.87 k/uL 0.50 Eosin% % 2.2 Abs Eosin <0.46 k/uL 0.12 Baso% % 0.4 Abs Baso <0.11 k/uL <0.03 Nucleated Reds 0 /100 WBC 0.0 Absolute nRBC <0.01 k/uL <0.01 Diff Type Auto Diff Protein, Total 6.3 - 8.0 g/dL 6.7 Albumin 3.9 - 4.9 g/dL 4.0 Calcium 8.5 - 10.2 mg/dL 9.2 Bilirubin, Total 0.2 - 1.3 mg/dL 0.6 Alkaline Phosphatase 38 - 113 U/L 62 AST 14 - 40 U/L 43 (H) Glucose 74 - 99 mg/dL 108 (H) BUN 9 - 24 mg/dL 11 Creatinine 0.73 - 1.22 mg/dL 0.87 Sodium 136 - 144 mmol/L 142 Potassium 3.7 - 5.1 mmol/L 4.5 Chloride 97 - 105 mmol/L 104 CO2 22 - 30 mmol/L 25 Anion Gap 9 - 18 mmol/L 13 ALT 10 - 54 U/L 60 (H) eGFR- >60 eGFR-All Other Races . >60 Total Cholesterol, Nonfasting <200 mg/dL 187 Triglycerides, Nonfasting <150 mg/dL 107 HDL Cholesterol, Nonfasting >39 mg/dL 49 LDL Cholesterol, Nonfasting <100 mg/dL 117 (H) Non HDL Cholesterol, Nonfasting <130 mg/dL 138 (H) VLDL Cholesterol, Nonfasting <30 mg/dL 21 Total Chol/HDL Ratio, Nonfasting <5.10 mg/dL 3.82 LDL/HDL Ratio, Nonfasting <2.54 mg/dL 2.39 Specimen Request Specimen received in preservative Culture No growth (<1,000 CFU/ml) Hemoglobin A1C 4.3 - 5.6 % 5.1 Estimated Average Glucose mg/dL 100 PSA 0.00 - 2.59 ng/mL 1.36 MEDICATIONS: Current Outpatient Prescriptions: metroNIDAZOLE (FLAGYL) 250 mg tablet Take 1 tablet by mouth three times daily for 10 days. sulfamethoxazole-trimethoprim (BACTRIM DS) 800-160 mg per tablet Take 1 tablet by mouth twice daily for 10 days. citalopram (CELEXA) 20 mg tablet Take 1 tablet by mouth once daily. Tadalafil (CIALIS) 10 mg tablet Take 1 tablet by mouth as needed. hydroCHLOROthiazide (HYDRODIURIL, ESIDRIX) 25 mg tablet TAKE 1 TABLET DAILY zolpidem (AMBIEN) 10 mg tab Take one(1) tablet at bedtime as needed for insomnia. metoprolol succinate ER (TOPROL XL) 25 mg 24 hr tablet TAKE 1 TABLET DAILY FOR BLOOD PRESSURE simvastatin (ZOCOR) 20 mg tablet TAKE 1 TABLET AT BEDTIME No current facility-administered medications for this visit. ALLERGIES: ALLERGIES No Known Allergies PAST MEDICAL HISTORY Diagnosis Date - Diverticulitis of colon (without mention of hemorrhage)(562.11) - Essential hypertension, benign - Insomnia - Other and unspecified hyperlipidemia PAST SURGICAL HISTORY Procedure Laterality Date - COLONOSCOP W/ OR W/O [facility] SPEC 03/19/2010 Diverticulosis - PAST SURGICAL HISTORY OF right 3rd mc fx - REMOVAL OF TONSILS,<12 Y/O Tonsillectomy/ adenoids - SIGMOIDOSCOPY FLEX DIAG 02/21/07 - VASECTOMY FAMILY HISTORY Problem Relation Age of Onset - Lipids Mother - Lipids Father - Prostate Cancer Father Social History Marital status: Spouse name: Edilia Years of education: Number of children: 2 Occupational History Occupation Employer Comment [employer] Social History Main Topics Smoking status: Former Smoker Packs/day: 1.00 Years: 5.00 Types: Cigarettes Quit date: 03/06/1989 Smokeless tobacco: Former User Comment: quit aproximatemately 10 years ago Alcohol use: Yes Comment: occasionally- 4-5 week Drug use: No Reviewed current medications, allergies, past medical history, surgical history, family history and social history today. REVIEW OF SYSTEMS All other reviewed and negative other than HPI. HEALTH MAINTENANCE: Reviewed health maintenance issues today and recommended the following in detail. BP CONTROLLED (<130/80) due on 1982 INFLUENZA-getting at work. Had colonoscopy at age 44 for identical symptoms. Discussed repeating at age 54. Had discussion with patient regarding risks and benefits of prostate screening. Allowed them to decide if they wished to proceed with screening including FIOR and PSA. VITALS: BP 120/72 Pulse 60 Resp 16 Wt 82.6 kg (182 lb) BMI 29.38 kg/m? Last 4 Encounter Wt Readings: Date: Wt: 12/06/2017 82.6 kg (182 lb) 12/04/2017 83.9 kg (185 lb) 02/10/2017 81.7 kg (180 lb 3.2 oz) 12/01/2016 81.2 kg (179 lb) PHYSICAL EXAMINATION: General appearance: Well appearing, alert, in no acute distress, well-hydrated, well nourished. Skin: Skin color, texture, turgor normal, no suspicious rashes or lesions Head: Normocephalic, no masses, lesions, tenderness or abnormalities Lungs: Lungs clear to auscultation. No wheezing, rhonchi, rales Heart: RRR without murmur, gallop, or rubs. No ectopy Abdomen: Normal abdominal exam, Abdomen soft, non-tender. Bowel sounds normal. No masses, organomegaly Extremities: No deformities, edema, skin discoloration, clubbing or cyanosis. Good capillary refill. ASSESSMENT/PLAN: 1. Diverticulitis - ICD9: 562.11, ICD10: K57.92 (primary diagnosis) - much improved. No changes in bowels. 2. Essential hypertension, benign - ICD9: 401.1, ICD10: I10 - good control - Continue current medication(s) - Goal of BP <140/90 3. Mixed hyperlipidemia - ICD9: 272.2, ICD10: E78.2 - to be determined upon return of lab results - Continue current medication. 4. Elevated liver enzymes - ICD9: 790.5, ICD10: R74.8 - recheck in four weeks. Ama Moreno MD RTO in six months and prn. COMP METABOLIC PANEL Collected: 12/04/2017 Status: F Source: [place] 9:41 AM [facility] REPOSITORY TYPE CODE TESTS RESULT OUT OF REFERENCE UNITS RANGE LAB TP 6.3-8.0 g/dL Protein, Total 6.7 LAB ALB 3.9-4.9 g/dL Albumin 4.0 LAB CA 8.5-10.2 mg/dL Calcium, Total 9.2 LAB TBIL 0.2-1.3 mg/dL Bilirubin, Total 0.6 LAB ALKP 38-113 U/L Alkaline Phosphatase 62 LAB AST 14-40 U/L AST High 43 LAB GLU 74-99 mg/dL Glucose High 108 Result Comment: The [place] [employer] (ADA) provides guidance for cutoff values for fasting glucose and random glucose. The ADA defines fasting as no caloric intake for at least 8 hours. Fas ting plasma glucose results between 100 to 125 mg/dL indicate increased risk for diabetes (prediabetes). Fasting plasma glucose results greater than or equal to 126 mg/dL meet the criteria for diagnosis of diabetes. In the absence of unequivocal hyperglycemia, results should be confirmed by repeat testing. In a patient with classic symptoms of hyperglycemia or hyperglycemic crisis, random plasma glucose results greater than or equal to 200 mg/dL meet the criteria for diagnosis of diabetes. Reference: Standards of Medical Care in Diabetes 2016, [place] [employer]. Diabetes Care. 2016.39(Suppl 1). LAB BUN 9-24 mg/dL BUN 11 LAB CRET 0.73-1.22 mg/dL Creatinine 0.87 LAB NA 136-144 mmol/L Sodium 142 LAB K 3.7-5.1 mmol/L Potassium 4.5 LAB CL 97-105 mmol/L Chloride 104 LAB CO2 22-30 mmol/L CO2 25 LAB AGAP 9-18 mmol/L Anion Gap 13 LAB ALT 10-54 U/L ALT High 60 LAB GFRAA eGFR- Amer. >60 LAB GFRNAA . eGFR-All Other Races >60 Result Comment: eGFR (Estimated GFR) Units of measure: mL/min/1.73 meters squared eGFR is derived from the reexpressed MDRD Study equation using the following parameters: serum creatinine, age, gender and race. The creatinine assay has been calibrated to be traceable to IDMS. An eGFR <60 mL/min/1.73m2 for >3 months is consistent with chronic kidney disease. Refer to KDOQI guidelines for clinical interpretation. In patients with unstable renal function, e.g. those with acute kidney injury, the eGFR may not accurately reflect actual GFR. Performed By: #### CMP, LIPNF, PSA, CBCDIF, HBA1C #### [facility] [address], [place] [address] LIPID PANEL, NONFAST Collected: 12/04/2017 Status: F Source: [place] 9:41 AM [facility] REPOSITORY TYPE CODE TESTS RESULT OUT OF REFERENCE UNITS RANGE LAB CHOLNF <200 mg/dL Total Cholesterol NF 187 Result Comment: <200 mg/dL, Desirable 200-239 mg/dL, Borderline high >239 mg/dL, High LAB TRIGNF <150 mg/dL Triglycerides, NF 107 Result Comment: <150 mg/dL, Normal 150-199 mg/dL, Borderline high 200-499 mg/dL, High >499 mg/dL, Very high LAB HDLNF >39 mg/dL HDL Cholesterol, NF 49 Result Comment: 40-59 mg/dL, Acceptable >59 mg/dL, High: Negative risk factor for coronary heart disease <40 mg/dL, Low: Positive risk factor for coronary heart disease LAB LDLNF <100 mg/dL LDL Cholesterol, High NF 117 Result Comment: <100 mg/dL, Optimal 100-129 mg/dL, Near optimal/above optimal 130-159 mg/dL, Borderline high 160-189 mg/dL, High >189 mg/dL, Very high Secondary prevention optimal LDL Cholesterol levels are recommended to be < 70 mg/dL LAB NOHDLN <130 mg/dL High Non HDL Chol, 138 NF Result Comment: <130 mg/dL, Optimal 130-159 mg/dL, Near optimal/above optimal 160-189 mg/dL, Borderline high 190-219 mg/dL, High >219 mg/dL, Very high Secondary prevention optimal non HDL Cholesterol levels are recommended to be < 100 mg/dL LAB VLDLNF <30 mg/dL VLDL Cholesterol, NF 21 LAB TCHDLN <5.10 mg/dL T Chol/HDL Ratio NF 3.82 LAB LDLHDN <2.54 mg/dL LDL/HDL Ratio, NF 2.39 Result Comment: Reference: 1. National Cholesterol Education Program ATP III Guideline At-A-Glance Quick Desk Reference: National Heart, Lung, and Blood [place]. National Institutes of Health. 2001: NIH Publication No. 01-3305. 2. An International Atherosclerosis Society position paper: global recommendations for the management of dyslipidemia: executive summary, Atherosclerosis. 2014: 232(2):410-413. Performed By: #### CMP, LIPNF, PSA, CBCDIF, HBA1C #### [facility] [address] [place], [place] [address] PSA, DIAGNOSTIC Collected: 12/04/2017 Status: F Source: [place] 9:41 AM [facility] REPOSITORY TYPE CODE TESTS RESULT OUT OF REFERENCE UNITS RANGE LAB PSA 0.00-2.59 ng/mL PSA, Diagnostic 1.36 Result Comment: Total PSA test methodology used is the Electrochemiluminescence Immunoassay. Performed By: #### CMP, LIPNF, PSA, CBCDIF, HBA1C #### [facility] [address], [place] [address] CBC AND DIFFERENTIAL Collected: 12/04/2017 Status: F Source: [place] 9:41 AM [facility] REPOSITORY TYPE CODE TESTS RESULT OUT OF REFERENCE UNITS RANGE LAB WBC 3.70-11.00 k/uL WBC 5.57 LAB RBC 4.20-6.00 m/uL RBC 4.89 LAB HGB 13.0-17.0 g/dL Hemoglobin 15.0 LAB HCT 39.0-51.0 % Hematocrit 46.8 LAB MCV 80.0-100.0 fL MCV 95.7 LAB MCH 26.0-34.0 pG MCH 30.7 LAB MCHC 30.5-36.0 g/dL MCHC 32.1 LAB RDWCV 11.5-15.0 % RDW-CV 13.0 LAB PLTCT 150-400 k/uL Platelet Count 196 LAB MPV 9.0-12.7 fL MPV 10.5 LAB ANEUT % Neut% 72.4 LAB AANEUT 1.45-7.50 k/uL Abs Neut 4.04 LAB ALYMP % Lymph% 16.0 LAB AALYMP 1.00-4.00 k/uL Low Abs Lymph 0.89 LAB AMONO % Lincoln% 9.0 LAB AAMONO <0.87 k/uL Abs Lincoln 0.50 LAB AEOS % Eosin% 2.2 LAB AAEOS <0.46 k/uL Abs Eosin 0.12 LAB ABASO % Baso% 0.4 LAB AABASO <0.11 k/uL Abs Baso <0.03 LAB AUNRBC 0 /100 WBC NRBCs 0.0 LAB ABNRBC <0.01 k/uL Absolute nRBC <0.01 LAB DTYP DTYPE Auto Diff Performed By: #### CMP, LIPNF, PSA, CBCDIF, HBA1C #### [facility] [address], [place] [address] HEMOGLOBIN A1C Collected: 12/04/2017 Status: F Source: [place] 9:41 AM [facility] [facility] REPOSITORY TYPE CODE TESTS RESULT OUT OF REFERENCE UNITS RANGE LAB HGBA1C 4.3-5.6 % Hemoglobin A1c 5.1 LAB HBA0 mg/dL Est. Average Glucose 100 Result Comment: eAG: (Estimated average glucose) is a calculated value from HgbA1c and is indirect sales representative of the average blood glucose level in the last 2-3 month period. Performed By: #### CMP, LIPNF, PSA, CBCDIF, HBA1C #### [facility] [employer] [address] [place], [place] [address] Observed: 12/04/2017 Status: F Source: [place] URINE CULTURE 9:28 AM [facility] REPOSITORY Sp. Request/Comment: - Specimen received in preservative Culture Result - No growth (<1,000 CFU/ml) Performed By: #### URCUL #### [facility] [employer] [facility] [place], [place] [address] PROGRESS Observed: 12/04/2017 Status: COMPLETED Source: [place] 9:07 AM [facility] REPOSITORY HNO ID: [id number] Author: Ama Moreno Service: (none) Author Type: Physician Type: Progress Notes Filed: 12/04/2017 9:20 AM Note Text: Patient presents with: Abdominal Pain: x one week, LLQ HPI: Patient presents today for office visit for an acute visit. Complains of llq pain for one week. Comes and goes. Slightly better after bm. Eating seems to make it worse as well. No bowel changes. No diarrhea or constipation. No bloody or black stools. No fever or chills. No nausea or vomiting. No heartburn. He noted he was having some dysuria and frequency over the weeken. No flank pain or hematuria. No appetite changes. Has a hx of remote diverticulitis. HYPERTENSION: no chest pain or shortness of breath. No dizziness. HLD:no myalgias. PSYCH: rarely using ambien. Emotionally doing well. No issues with meds. PDMP website checked and validated. All prescriptions have been APPROPRIATELY filled. No suspicious activity was identified. 12/04/2017 by Ama Moreno MD MEDICATIONS: Current Outpatient Prescriptions: citalopram (CELEXA) 20 mg tablet Take 1 tablet by mouth once daily. Tadalafil (CIALIS) 10 mg tablet Take 1 tablet by mouth as needed. hydroCHLOROthiazide (HYDRODIURIL, ESIDRIX) 25 mg tablet TAKE 1 TABLET DAILY zolpidem (AMBIEN) 10 mg tab Take one(1) tablet at bedtime as needed for insomnia. metoprolol succinate ER (TOPROL XL) 25 mg 24 hr tablet TAKE 1 TABLET DAILY FOR BLOOD PRESSURE simvastatin (ZOCOR) 20 mg tablet TAKE 1 TABLET AT BEDTIME No current facility-administered medications for this visit. ALLERGIES: ALLERGIES No Known Allergies PAST MEDICAL HISTORY Diagnosis Date - Diverticulitis of colon (without mention of hemorrhage)(562.11) - Essential hypertension, benign - Insomnia - Other and unspecified hyperlipidemia PAST SURGICAL HISTORY Procedure Laterality Date - COLONOSCOP W/ OR W/O [facility] SPEC 03/19/2010 Diverticulosis - PAST SURGICAL HISTORY OF right 3rd mc fx - REMOVAL OF TONSILS,<12 Y/O Tonsillectomy/ adenoids - SIGMOIDOSCOPY FLEX DIAG 02/21/07 - VASECTOMY FAMILY HISTORY Problem Relation Age of Onset - Lipids Mother - Lipids Father Social History Marital status: Spouse name: Edilia Years of education: Number of children: 2 Occupational History Occupation Employer Comment [employer] Social History Main Topics Smoking status: Former Smoker Packs/day: 1.00 Years: 5.00 Types: Cigarettes Quit date: 03/06/1989 Smokeless tobacco: Former User Comment: quit aproximatemately 10 years ago Alcohol use: Yes Comment: occasionally- 4-5 week Drug use: No Reviewed current medications, allergies, past medical history, surgical history, family history and social history today. REVIEW OF SYSTEMS All other reviewed and negative other than HPI. HEALTH MAINTENANCE: Reviewed health maintenance issues today and recommended the following in detail. BP CONTROLLED (<130/80) due on 1982 INFLUENZA-will be getting at work. VITALS: BP 132/78 Pulse 72 Temp 36.2 ?C (97.2 ?F) (Tympanic) Resp 16 Wt 83.9 kg (185 lb) BMI 29.86 kg/m? Last 4 Encounter Wt Readings: Date: Wt: 12/04/2017 83.9 kg (185 lb) 02/10/2017 81.7 kg (180 lb 3.2 oz) 12/01/2016 81.2 kg (179 lb) 07/27/2015 80.3 kg (177 lb) PHYSICAL EXAMINATION: General appearance: Well appearing, alert, in no acute distress, well-hydrated, well nourished. Skin: Skin color, texture, turgor normal, no suspicious rashes or lesions Head: Normocephalic, no masses, lesions, tenderness or abnormalities Lungs: Lungs clear to auscultation. No wheezing, rhonchi, rales Heart: RRR without murmur, gallop, or rubs. No ectopy Abdomen: Normal abdominal exam, Abdomen soft, mild llq tenderness. No rebound or guarding. Bowel sounds normal. No masses, organomegaly Extremities: No deformities, edema, skin discoloration, clubbing or cyanosis. Good capillary refill. ASSESSMENT/PLAN: 1. Left lower quadrant pain - ICD9: 789.04, ICD10: R10.32 (primary diagnosis) - Hold on imaging given exam. - Discussed risks and benefits of new medication with the patient. Advised them to call if any side effects or questions. - Red flags for re-assessment reviewed with patient in detail. - recheck in forty eight hours. - UA DIP B/O - URINE CULTURE - CBC + DIFF - METRONIDAZOLE 250 MG TABLET - SULFAMETHOXAZOLE 800 MG-TRIMETHOPRIM 160 MG TABLET 2. Elevated glucose - ICD9: 790.29, ICD10: R73.09 - check hba1c 3. Family history of prostate cancer in father - ICD9: V16.42, ICD10: Z80.42 - PSA/PROSTSPECAG DIAG 4. Mixed hyperlipidemia - ICD9: 272.2, ICD10: E78.2 - to be determined upon return of lab results - Continue current medication. - Encouraged following a low fat, low cholesterol diet. - COMP METABOLIC PANEL - LIPID PANEL, NONFASTING 5. Essential hypertension, benign - ICD9: 401.1, ICD10: I10 - good control - Continue current medication(s) - Goal of BP <140/90 Ama Moreno MD RTO in two days and prn. CNOV Observed: 12/04/2017 Status: COMPLETED Source: [place] 9:00 AM [facility] REPOSITORY [facility] SANDEEP BARN[facility] ([id number]) 1965 Date Time Provider Department 12/04/17 9:00 AM AMA MORENO During your visit today, we recorded the following information about you: Temperature Pulse Respiration Blood pressure 97.2 degrees 72/minute 16/minute 132/78 Weight 83.9 kg Ama Moreno MD 12/04/2017 9:20 AM Signed Patient presents with: Abdominal Pain: x one week, LLQ HPI: Patient presents today for office visit for an acute visit. Complains of llq pain for one week. Comes and goes. Slightly better after bm. Eating seems to make it worse as well. No bowel changes. No diarrhea or constipation. No bloody or black stools. No fever or chills. No nausea or vomiting. No heartburn. He noted he was having some dysuria and frequency over the weeken. No flank pain or hematuria. No appetite changes. Has a hx of remote diverticulitis. HYPERTENSION: no chest pain or shortness of breath. No dizziness. HLD:no myalgias. PSYCH: rarely using ambien. Emotionally doing well. No issues with meds. PDMP website checked and validated. All prescriptions have been APPROPRIATELY filled. No suspicious activity was identified. 12/04/2017 by Ama Moreno MD MEDICATIONS: Current Outpatient Prescriptions: citalopram (CELEXA) 20 mg tablet Take 1 tablet by mouth once daily. Tadalafil (CIALIS) 10 mg tablet Take 1 tablet by mouth as needed. hydroCHLOROthiazide (HYDRODIURIL, ESIDRIX) 25 mg tablet TAKE 1 TABLET DAILY zolpidem (AMBIEN) 10 mg tab Take one(1) tablet at bedtime as needed for insomnia. metoprolol succinate ER (TOPROL XL) 25 mg 24 hr tablet TAKE 1 TABLET DAILY FOR BLOOD PRESSURE simvastatin (ZOCOR) 20 mg tablet TAKE 1 TABLET AT BEDTIME No current facility-administered medications for this visit. ALLERGIES: ALLERGIES No Known Allergies PAST MEDICAL HISTORY Diagnosis Date - Diverticulitis of colon (without mention of hemorrhage)(562.11) - Essential hypertension, benign - Insomnia - Other and unspecified hyperlipidemia PAST SURGICAL HISTORY Procedure Laterality Date [facility] Diverticulosis - PAST SURGICAL HISTORY OF right 3rd mc fx - REMOVAL OF TONSILS,<11 Y/O Tonsillectomy/ adenoids - SIGMOIDOSCOPY FLEX DIAG 02/21/07 - VASECTOMY FAMILY HISTORY Problem Relation Age of Onset - Lipids Mother - Lipids Father Social History Marital status: Spouse name: Edilia Years of education: Number of children: 2 Occupational History Occupation Employer Comment [employer] Social History Main Topics Smoking status: Former Smoker Packs/day: 1.00 Years: 5.00 Types: Cigarettes Quit date: 03/06/1989 Smokeless tobacco: Former User Comment: quit aproximatemately 10 years ago Alcohol use: Yes Comment: occasionally- 4-5 week Drug use: No Reviewed current medications, allergies, past medical history, surgical history, family history and social history today. REVIEW OF SYSTEMS All other reviewed and negative other than HPI. HEALTH MAINTENANCE: Reviewed health maintenance issues today and recommended the following in detail. BP CONTROLLED (<130/80) due on 1982 INFLUENZA-will be getting at work. VITALS: BP 132/78 Pulse 72 Temp 36.2 ?C (97.2 ?F) (Tympanic) Resp 16 Wt 83.9 kg (185 lb) BMI 29.86 kg/m? Last 4 Encounter Wt Readings: Date: Wt: 12/04/2017 83.9 kg (185 lb) 02/10/2017 81.7 kg (180 lb 3.2 oz) 12/01/2016 81.2 kg (179 lb) 07/27/2015 80.3 kg (177 lb) PHYSICAL EXAMINATION: General appearance: Well appearing, alert, in no acute distress, well-hydrated, well nourished. Skin: Skin color, texture, turgor normal, no suspicious rashes or lesions Head: Normocephalic, no masses, lesions, tenderness or abnormalities Lungs: Lungs clear to auscultation. No wheezing, rhonchi, rales Heart: RRR without murmur, gallop, or rubs. No ectopy Abdomen: Normal abdominal exam, Abdomen soft, mild llq tenderness. No rebound or guarding. Bowel sounds normal. No masses, organomegaly Extremities: No deformities, edema, skin discoloration, clubbing or cyanosis. Good capillary refill. ASSESSMENT/PLAN: 1. Left lower quadrant pain - ICD9: 789.04, ICD10: R10.32 (primary diagnosis) - Hold on imaging given exam. - Discussed risks and benefits of new medication with the patient. Advised them to call if any side effects or questions. - Red flags for re-assessment reviewed with patient in detail. - recheck in forty eight hours. - UA DIP B/O - URINE CULTURE - CBC + DIFF - METRONIDAZOLE 250 MG TABLET - SULFAMETHOXAZOLE 800 MG-TRIMETHOPRIM 160 MG TABLET 2. Elevated glucose - ICD9: 790.29, ICD10: R73.09 - check hba1c 3. Family history of prostate cancer in father - ICD9: V16.42, ICD10: Z80.42 - PSA/PROSTSPECAG DIAG 4. Mixed hyperlipidemia - ICD9: 272.2, ICD10: E78.2 - to be determined upon return of lab results - Continue current medication. - Encouraged following a low fat, low cholesterol diet. - COMP METABOLIC PANEL - LIPID PANEL, NONFASTING 5. Essential hypertension, benign - ICD9: 401.1, ICD10: I10 - good control - Continue current medication(s) - Goal of BP <140/90 Ama Moreno MD RTO in two days and prn. Referring Provider: SELF [[id number]] Allergies As of Date: 12/04/2017 (No Known Allergies) Date Reviewed: 12/04/2017 Reviewed by: Cori Mc Ma - Fully Assessed Reason for Visit: Abdominal Pain [1] Cmt: x one week, LLQ Primary Visit Diagnosis:Left lower quadrant pain [R10.32] Other Visit Diagnoses:Elevated glucose [R73.09] Family history of prostate cancer in father [Z80.42] Mixed hyperlipidemia [E78.2] Essential hypertension, benign [I10] Order(s):UA DIP B/O [2802190] Order #: [id number] URINE CULTURE [SQURCUL] Order #: [id number] CBC + DIFF [SQCBCDIF] Order #: [id number] FUTURE COMP METABOLIC PANEL [SQCMP] Order #: [id number] FUTURE LIPID PANEL, NONFASTING [SQLIPNF] Order #: [id number] FUTURE PSA/PROSTSPECAG DIAG [SQPSA] Order #: [id number] FUTURE metroNIDAZOLE (FLAGYL) 250 mg tabletTake 1 tablet by mouth three times daily for 10 days.Disp: 30 tabletRfl: 0 sulfamethoxazole-trimethoprim (BACTRIM DS) 800-160 mg per tabletTake 1 tablet by mouth twice daily for 10 days.Disp: 20 tabletRfl: 0 HGB A1C [KCITL3N] Order #: [id number] FUTURE Prescriptions as of 12/04/2017 Sig: CITALOPRAM 20 MG TABLET Take 1 tablet by mouth once d* TADALAFIL 10 MG TABLET Take 1 tablet by mouth as nee* HYDROCHLOROTHIAZIDE 25 MG TAB* TAKE 1 TABLET DAILY ZOLPIDEM 10 MG TABLET Take one(1) tablet at bedtime* METOPROLOL SUCCINATE ER 25 MG* TAKE 1 TABLET DAILY FOR BL* SIMVASTATIN 20 MG TABLET TAKE 1 TABLET AT BEDTIME METRONIDAZOLE 250 MG TABLET Take 1 tablet by mouth three * SULFAMETHOXAZOLE 800 MG-TRIME* Take 1 tablet by mouth twice * Problem List As Of Date 12/04/2017 Noted Resolved BENIGN HYPERTENSION [I10] INVALID FOR* More... Mixed hyperlipidemia [E78.2] INVALID FOR* More... Hemorrhage of rectum and anus [K62.5] 04/09/2010 Contusion of unspecified part of lower limb [S8*INVALID FOR*04/09/2010 CHRONIC RHINITIS [J31.0] INVALID FOR* More... Overweight [E66.3] INVALID FOR*04/09/2010 More... INSOMNIA NOS [G47.00] INVALID FOR* Swelling, mass, or lump in chest [R22.2] INVALID FOR*04/09/2010 Diverticulitis [K57.92] INVALID FOR*04/09/2010 Elevated glucose [R73.09] INVALID FOR* Diverticulosis [K57.90] INVALID FOR* Itchy anus [L29.0] INVALID FOR*01/12/2012 Fissure in ano [K60.2] INVALID FOR*01/12/2012 Anxiety [F41.9] INVALID FOR* Family history of prostate cancer in father [Z8*INVALID FOR* Prescriptions ordered this encounter Disp Refills Start End METRONIDAZOLE 250 MG TABLET 30 t* 0 12/04/2017 12/14/2017 Route: ORAL Sig: Take 1 tablet by mouth three times daily for 10 days. SULFAMETHOXAZOLE 800 MG-TRIMETHOPRIM* 20 t* 0 12/04/2017 12/14/2017 Route: ORAL Sig: Take 1 tablet by mouth twice daily for 10 days. Medications Discontinued During This Encounter meloxicam (MOBIC) 15 mg tablet 20 t* 0 02/10/2017 12/04/2017 Route: ORAL Sig: Take 1 tablet by mouth once daily. With food. Disc: Course of therapy completed LORazepam (ATIVAN) 1 mg tablet 20 t* 0 08/28/2015 12/04/2017 Class: Print RX Route: ORAL Sig: Take 1 tablet by mouth every 8 hours as needed for Anxiety. Disc: Reason for discontinue is not on file. Follow-up and Disposition History Recorded Encounter Status:Closed by AMA MORENO MD on 12/04/17 ALLERGIES ALLERGIES DATE TYPE / CODE NAME / CODE REACTION SEVERITY SOURCE 03/21/2018 Drug No Known Unknown [facility] Allergy/416 Allergies/C62589 Hospital [id number](SNOM 0388(RXNORM) Repository ED CT) Drug NO KNOWN [facility] Class/39008 ALLERGIES Main [place] 1003(SNOMED Repository CT) ENCOUNTERS ENCOUNTERS ADMIT/DISCHARGE ACCOUNT ADMITTING ENCOUNTER LOCATION SOURCE NUMBER CLASS 03/21/2018/03/21/19 [id number] Emergency [address] ing:ED Repository 03/21/2018/03/28/19 [id number] Ambulatory [address] [place] Repository 03/21/2018/03/21/19 [id number] Ambulatory [address] Main [place] Repository 03/21/2018/03/21/19 [id number] Ambulatory [address] Main [place] Repository 03/21/2018/03/21/19 [id number] Ambulatory [address] Main [place] Repository 03/21/2018/03/22/19 [id number] Ambulatory [address] Main [place] Repository 01/13/2018/01/14/20 [id number] Ambulatory [address] Main [place] Repository 12/06/2017/12/08/19 [id number] Ambulatory [address] Repository 12/04/2017/12/05/19 [id number] Ambulatory [address] Main [place] Repository 12/04/2017/12/06/19 [id number] Ambulatory [address] Repository PAYERS PAYERS ENCOUNTER GUARANTOR PAYER SUBSCRIBER SOURCE 03/21/2018 SANDEEP Arrington Primary SANDEEP Murphy MoralesFrancisco [id number] [facility] SHEARERDOB: [facility] [address]Xkgybb [id number]: Repository [address]Oid: [phone] [id number] [phone] () Date:[id number], [place] [address]UL: 03/21/2018 Secondary NOT GIVENUNK [place] Insurance:SELF PAY [facility] Number: Effective Repository Date:2018-03-21
== END 2018-03-21 19:13 | disposition home or self-care (01) ==
PROVIDERS: Emergency Provider Emergency Medicine; Family Provider Family Medicine; PCP Family Medicine
DX: K57.20 Diverticulitis of large intestine with perforation and abscess without bleeding (principal); I10 Essential (primary) hypertension; E78.5 Hyperlipidemia, unspecified; Z79.899 Other long term (current) drug therapy
CPT/HCPCS: 96365; 96367; 96375; 99283; J7050; A4216; J0744